=== PATIENT | male | born 1950 | race Caucasian/White ===

== ENCOUNTER 2022-05-08 16:17 | Emergency (ER) | payer OTHER, SELFPAY ==
[2022-05-08 16:38] VITALS: BP 121/79; PULSE 80; RESP 16; TEMP 36.5; O2SAT 100
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
== END 2022-05-08 17:14 | disposition home or self-care (01) ==
LOC: ER 17:14
PROVIDERS: Emergency Provider Physician Assistant
DX: S39.012A Strain of muscle, fascia and tendon of lower back, initial encounter (principal); V49.49XA Driver injured in collision with other motor vehicles in traffic accident, initial encounter
CPT/HCPCS: 99282

== ENCOUNTER 2025-10-11 12:38 | Emergency (ER) | payer OTHER, SELFPAY ==
[2025-10-11 12:42] VITALS: BP 152/88; PULSE 75; RESP 16; TEMP 36.3; O2SAT 98
--- NOTE | 2025-10-11 14:33 | ED.GENADUL_ITS ---
Discharge Plan Disposition Patient Disposition: Home Condition: Stable Discharge Details Clinical Impression: Acute anterior epistaxis Primary Care Provider: Arabella Morgan ED Provider: Nereyda Todd Home Meds and New Rx's Prescriptions: New oxymetazoline [Afrin (oxymetazoline)] 0.05 % spray,non-aerosol 2 spray intranasal Q12H PRN3 Days Qty: 15 0RF No Action carvedilol [Coreg] 6.25 mg Tablet 6.25 mg PO DAILY ezetimibe 10 mg Tablet 10 mg PO DAILY cyclobenzaprine 5 mg tablet 5 mg PO TID PRNQty: 10 0RF Discharge Instructions Instructions: Nosebleeds ED Additional Instructions: You were seen in the emergency department today for evaluation of a nosebleed. In our department a full physical examination performed, and had a small blood vessel cauterized. You likely had a nosebleed due to your dual antiplatelet therapy that you take for your cardiac disease, please continue taking both of those medications as well as all of your other prescriptions as recommended. To prevent nosebleeds, I recommend using a humidifier to increase the moisture in the air, you can also consider using Vaseline based ointment on the inside of your nostrils. If you do get a nosebleed, please place the nasal clamps on your nose and leave them in place for 20 to 25 minutes without disturbing them. Afterwards you can gently blow out any clots and assess for ongoing bleeding. If you are still bleeding you can trial a nasal spray such as Afrin which can constrict blood vessels and help with bleeding. Please instill this into your bleeding nostril, and replace the clamp for another 20 to 30 minutes. You can try this 2 times at home, if it is not successful you will need to return to the emergency department for reevaluation. I sent a prescription for the Afrin medication, but if it is cheaper you can also purchase it [id number], it will be equally effective. Please follow-up with your primary care provider in the next few days to discuss this visit and any symptoms that change, worsen, or persist. Thank you for allowing us to be part of your care. Stand Alone Forms: Portal Information HPI General Mode of arrival: ambulatory . Date/Time Provider Initiated Documentation: 10/11/25 12:56 . Limitations to Documentation: no limitations . Information obtained by: patient and old records reviewed . HPI Narrative: This is a 75-year-old male patient with a history of CAD, status post cath jairo roximately 1 week ago, on dual antiplatelet therapy presenting for evaluation of a nosebleed. The patient reports that he was in his normal state of health this morning, did blow his nose and noted bleeding from his right nare at that time. The bleeding persisted for about an hour and a half, prompting him to seek care. He reports that it is quite slow now, was provided with a clamp while waiting evaluation. The patient reports no digital trauma or other injuries, has been taking his medications as prescribed, states that he does not use a humidifier, and has never had a problem with nosebleeds in the past. He is otherwise feeling well without dizziness, chest pain, headache. Related Data Home Medications Medication Instructions Recorded Confirmed carvedilol 6.25 mg tablet (Coreg) 6.25 mg PO DAILY 05/08/22 cyclobenzaprine 5 mg tablet 5 mg PO TID PRN #10 tabs 0 05/08/22 ezetimibe 10 mg tablet 10 mg PO DAILY 05/08/2204/23 oxymetazoline 0.05 % nasal spray 2 spray intranasal Q1 2H PRN 3 days 10/11/25 (Afrin (oxymetazoline)) #15 mL Previous Rx's Medication Instructions Recorded cyclobenzaprine 5 mg tablet 5 mg PO TID PRN #10 tabs 0 05/08/22 oxymetazoline 0.05 % nasal spray 2 spray intranasal Q1 2H PRN 3 days 10/11/25 (Afrin (oxymetazoline)) #15 mL Allergies Allergy/AdvReac Type Severity Reaction Status Date / Time No Known Allergies Allergy Unverified 10/11/25 12:45 General Stated Complaint: Epistaxis FIDENCIO: 4 Exam Narrative Exam Narrative: Gen: Awake and alert, in no apparent distress HEENT: Non-icteric sclera, PERRL, EOMs are full. The patient has evidence of bleeding vessels on the right septum visualized in the anterior aspect of the nose, with slight oozing. Left nare clear, posterior pharynx without bleeding appreciated, nor erythema, exudate, swelling or asymmetry. Neck: Supple, full range of motion Lungs: No apparent respiratory distress, normal respiratory effort. CV: Appears well perfused, heart with regular rate and rhythm Abdomen: Non-distended MSK: Moves 4 extremities without apparent limitation in ROM Skin: Visualized skin without rashes, cyanosis. Neuro: Normal Gait, no obvious focal deficits or facial asymmetry. Speaks in full, clear sentences. Psych: Appropriate for situation. Course Vital Signs Vital signs: Vital Signs Temperature 36.3 C L 10/11/25 12:42 Pulse 75 10/11/25 12:42 Respiratory Rate 16 10/11/25 12:42 Blood Pressure 152/88 H 10/11/25 12:42 Pulse Oximetry 98 10/11/25 12:42 Temperature 36.3 C L 10/11/25 12:42 Temperature Source Oral 10/11/25 12:42 Pulse 75 10/11/25 12:42 Respiratory Rate 16 10/11/25 12:42 Blood Pressure 152/88 H 10/11/25 12:42 Pulse Oximetry 98 10/11/25 12:42 Oxygen Delivery Method Room Air 10/11/25 12:42 Oxygen Flow Rate 0 10/11/25 12:42 Lab/Test Results Lab/Test Results: Laboratory Tests Range/Units 10/11/25 13:16 WBC Cancelled RBC Cancelled Hgb Cancelled Hct Cancelled MCV Cancelled MCH Cancelled MCHC Cancelled RDW Cancelled Plt Count Cancelled MPV Cancelled Immature Gran % Cancelled Neutrophils % Cancelled Band Neutrophils % Cancelled Lymphocytes % Cancelled Atypical Lymphs % Cancelled Monocytes % Cancelled Eosinophils % Cancelled Basophils % Cancelled Metamyelocytes % Cancelled Myelocytes % Cancelled Promyelocytes % Cancelled Other Cells % Cancelled Nucleated RBC % Cancelled Absolute Neutrophils Cancelled Absolute Lymphocytes Cancelled Absolute Monocytes Cancelled Absolute Eosinophils Cancelled Absolute Basophils Cancelled RBC Morphology Cancelled Polychromasia Cancelled Hypochromasia Cancelled Poikilocytosis Cancelled Basophilic Stippling Cancelled Anisocytosis Cancelled Microcytosis Cancelled Macrocytosis Cancelled Spherocytes Cancelled Tear Drop Cells Cancelled Ovalocytes Cancelled Stomatocytes Cancelled Blanco-[place] Bodies Cancelled Abeba Cells/Echinocytes Cancelled Acanthocytes (Spur) Cancelled Schistocytes Cancelled PT Cancelled INR Cancelled Sodium Cancelled Potassium Cancelled Chloride Cancelled Carbon Dioxide Cancelled Anion Gap Cancelled BUN Cancelled Creatinine Cancelled Est GFR (CKD-EPI 2020) Cancelled Glucose Cancelled Calcium Cancelled Total Bilirubin Cancelled AST Cancelled ALT Cancelled Alkaline Phosphatase Cancelled Total Protein Cancelled Albumin Cancelled Procedure Epistaxis Control Date of Procedure: 10/11/25 Time of Procedure: 15:00 Provider that performed the procedure: Nereyda Todd Patient Consented: Verbally Nostril: right Nose prepped with: oxymetazoline Direct Inspection: yes and anterior source identified Clots Removed by: blowing nose Cautery Used: silver nitrate Procedure Description/Note: After direct pressure was held, the nose was evaluated into a box of hemorrhage were noted that were amenable to cautery with silver nitrate. The patient also received Oxy metolazone for topical ideation given ongoing oozing after initial cautery attempt. After the final cauterization, the patient was observed without direct pressure for 30 minutes, and had no recurrence of bleeding. The patient tolerated this procedure well without adverse event. Medical Decision Making This is a 75-year-old male patient presenting for evaluation of a nosebleed. Differential includes but is not limited to anterior epistaxis, less likely posterior epistaxis given its successful control with direct pressure. Considered coagulopathy especially in the setting of dual antiplatelet therapy. No trauma to suggest nasal injury or fracture, the amount of bleeding and the patient's hemodynamic exam is reassuring against severe anemia or hemorrhagic shock. The patient is not excessively hypertensive. Cautery was applied to the vessel on the anterior right septum, the patient noted some mild oozing after this and Afrin was instilled into the right nare. Direct pressure was held for another 25 minutes. Another vessel was visualized using the otoscope, and cautery was applied. The patient was monitored after this procedure for recurrence of bleeding. After 30 minutes of observation without the need for direct pressure, the patient remained hemostatic. I counseled the patient extensively on nasal care after epistaxis and epistaxis management in the home. I do not see an indication at this time to proceed with advanced imaging or laboratory studies. At this time, the patient has had a full medical evaluation and is safe for discharge to home. They are hemodynamically stable, ambulatory, and tolerating PO. They are understanding of the follow-up plan and return precautions. They left our facility without incident. Nereyda Todd MD [facility] All Active Problems (Updated 10/11/25 @ 14:33 by Nereyda Todd MD) Acute anterior epistaxis (Acute) Social History Smoking/Tobacco Use Status: Never Smoking risk assessment performed?: Yes Alcohol Intake: current Alcohol Intake frequency: a few times a week Substance use type: does not use Do you feel safe at home: Yes Do you feel safe in your relationship?: Yes
[2025-10-11] MEDS: Silver Nitrate Stick 1 EACH TP (14:37)
[2025-10-11] MEDS: Oxymetazolone 0.05% SPRAY 15 ML BTL NS (15:07)
== END 2025-10-11 16:07 | disposition home or self-care (01) ==
LOC: ER 15:08
PROVIDERS: Emergency Provider Emergency Medicine; PCP Physician Assistant
DX: R04.0 Epistaxis (principal); I25.10 Atherosclerotic heart disease of native coronary artery without angina pectoris
CPT/HCPCS: 30901; 80053; 99283; 85025; 85610

== ENCOUNTER 2025-11-10 10:35 | Outpatient (RCR) | payer OTHER, SELFPAY | END 2025-11-22 23:59 | disposition home or self-care (01) | LOC: CR 10:35 | PROVIDERS: PCP Physician Assistant; Visit Provider Internal Medicine Cardiovascular Disease | DX: I21.02 ST elevation (STEMI) myocardial infarction involving left anterior descending coronary artery (principal); Z95.2 Presence of prosthetic heart valve; R06.09 Other forms of dyspnea; Z51.89 Encounter for other specified aftercare | CPT/HCPCS: S9472 ==

== ENCOUNTER 2025-11-22 10:00 | Outpatient (RCR) | payer OTHER, SELFPAY ==
--- NOTE | 2025-11-13 10:30 | RT.EKG_ITS ---
APPROVED REPORT Exam: Resting ECG Reason for Exam: Cardiac Rehab baseline Patient Location: O HR:71 bpm ECG Measurements Heart Rate 71 AXIS PA 170 P 13 QRSd 138 QRS 19 QT 428 T -21 QTc 466 Conclusion Sinus rhythm...normal P axis, V-rate 50- 99 Multiform ventricular premature complexes...short R-R, variable morphology Nonspecific intraventricular conduction delay...QRSd >115mS, not LBBB/RBBB Anterior infarct, old...Q >40mS, abnormal ST-T, V2-V5 Borderline T abnormalities, inferior leads...T flat/neg, II III aVF
== END 2025-11-22 23:59 | disposition home or self-care (01) ==
LOC: CR 10:00
PROVIDERS: PCP Physician Assistant; Visit Provider Internal Medicine Cardiovascular Disease
DX: I21.02 ST elevation (STEMI) myocardial infarction involving left anterior descending coronary artery (principal); Z95.2 Presence of prosthetic heart valve; R06.09 Other forms of dyspnea; Z51.89 Encounter for other specified aftercare
CPT/HCPCS: S9472